=== PATIENT | female | born 1965 | race Caucasian/White ===

== ENCOUNTER 2019-04-24 07:47 | Emergency (ER) | payer BC, SELFPAY ==
[2019-04-24 07:50] VITALS: BP 111/62; PULSE 115; RESP 16; TEMP 36.8; O2SAT 99
[2019-04-24 07:55] VITALS: BP 111/62; PULSE 120; RESP 16; TEMP 36.8; O2SAT 99
--- NOTE | 2019-04-24 08:23 | ED.GENADULT ---
HPI - General Adult General Chief complaint: Wound/Laceration Stated complaint: ?? spider bite Time Seen by Provider: 04/24/19 08:09 Source: patient Mode of arrival: ambulatory Limitations: no limitations History of Present Illness HPI narrative: Patient presents with chief complaint of spider bite to her left thigh that she noticed at approximately 5 AM this morning. Patient states that she felt something bite her in her pajama pants that she jumped up and removed her pants and later saw the bruised area. Patient states the area is tender. Patient denies any drainage, fever, chills, nausea, vomiting, weakness, chest pain, shortness of breath, weakness. Patient reports taking methamphetamines yesterday. Patient states that she does not normally use methamphetamines. Patient is a cigarette smoker. Patient denies any chronic medical conditions. Patient reports taking Tylenol PM and NyQuil PM last night to help her sleep as she was wound up. Related Data Allergies Allergy/AdvReac Type Severity Reaction Status Date / Time Penicillins Allergy Unknown Hives Verified 04/24/19 07:53 Review of Systems Review of Systems: Narrative: CONSTITUTIONAL: Denies fever, chills, or sweats. EYES: Denies visual changes, redness, or discharge. ENT: Denies rhinorrhea, congestion, sore throat, or otalgia. CARDIOVASCULAR: Denies chest pain, palpitations, or edema. RESPIRATORY: Denies cough or dyspnea. GASTROINTESTINAL: Denies abdominal pain, nausea, vomiting, or diarrhea. GENITOURINARY: Denies dysuria or hematuria. SKIN: Reports insect bite denies rash or itching. MUSCULOSKELETAL: Denies back pain, joint pain, or myalgia. NEUROLOGIC: Denies headache, numbness, dizziness, or weakness. PSYCHIATRIC: Denies anxiety or depression. [facility] Social History Social History (Updated 04/24/19 @ 08:30 by Jeannie Spencer PA-C) Smoking status: Current every day smoker Tobacco type: cigarettes Alcohol intake: current Substance use: current Substance use type: methamphetamine Gender identity (if verbalized by the patient): Female Exam Narrative: Exam Narrative: GENERAL: Well-appearing, well-nourished, and in no acute distress. HEAD: Normocephalic, atraumatic. EYES: PERRLA and EOMI. ENT: Nares clear, no rhinorrhea or epistaxis. Mucous membranes moist. Oropharynx without tonsillar hypertrophy exudate or other lesions. Bilateral TMs pearly lovell nonbulging NECK: Supple. No adenopathy or masses. No carotid bruits or JVD CHEST: Clear to auscultation. No respiratory distress. No wheezes rales or rhonchi HEART: Regular rate and rhythm. No murmur heard. Normal peripheral pulses. ABDOMEN: Soft, nontender, nondistended, normal active bowel sounds. EXTREMITIES: Normal range of motion. No edema. SKIN: Bite appearing indentation to left thigh with surrounding erythema that is blanchable. Not necrotic. Tender to palpation. NEURO: No focal deficits. Alert and oriented x3. PSYCH: Normal mood and affect. Course Vital Signs Vital signs: Vital Signs Temperature 98.2 F 04/24/19 07:50 Pulse Rate 115 H 04/24/19 07:50 Respiratory Rate 16 04/24/19 07:50 Blood Pressure 111/62 04/24/19 07:50 Pulse Oximetry 99 04/24/19 07:50 Temperature 98.2 F 04/24/19 07:55 Pulse Rate 120 H 04/24/19 07:55 Respiratory Rate 16 04/24/19 07:55 Blood Pressure 111/62 04/24/19 07:55 Pulse Oximetry 99 04/24/19 07:55 Medical Decision Making MDM Narrative Medical decision making narrative: Discussed with the patient need to update tetanus status. At this time no sign of infection. Patient denies seeing any brown recluses in her home. Patient instructed on proper wound care and to present for reevaluation if any signs of infection, lethargy, nausea, vomiting, fever, chills, abdominal pain or any other emergent symptoms present. Patient states she only tried meth as a one time thing and discussed the risks of meth use and the need to stop usage. Patient is in
[2019-04-24] MEDS: IBUPROFEN 600 MG TABLET PO (08:55)
[2019-04-24] MEDS: TETANUS,DIPHTHERIA,AC PERTUSSIS ADULT 0.5 ML (ADACEL) IM (08:56)
== END 2019-04-24 09:05 | disposition home or self-care (01) ==
PROVIDERS: Emergency Provider Emergency Medicine; PCP Emergency Medicine
DX: T63.301A Toxic effect of unspecified spider venom, accidental (unintentional), initial encounter (principal); F17.210 Nicotine dependence, cigarettes, uncomplicated; Z23 Encounter for immunization
CPT/HCPCS: 90471; 90715; 99283; A9270

== ENCOUNTER 2021-05-08 08:24 | Emergency (ER) | payer BC, SELFPAY ==
[2021-05-08 08:32] VITALS: BP 132/80; PULSE 98; RESP 17; TEMP 36.6; O2SAT 100
--- NOTE | 2021-05-08 08:51 | ED.SKABFB ---
HPI - Skin/Abscess/Foreign Bdy General Chief complaint: Skin/Abscess/Foreign Body <Harvey Reyna APRN - Last Filed: 05/08/21 09:17> Stated complaint: rash, constipation <Harvey Reyna APRN - Last Filed: 05/08/21 09:17> Time Seen by Provider: 05/08/21 08:43 <Harvey Reyna APRN - Last Filed: 05/08/21 09:17> History of Present Illness HPI narrative: 56-year-old female presents to emergency room with complaints of right flank pain with an associated rash. States rash is painful and burning. Was seen at outside ER 3 days ago for low back pain, states that the work-up was normal. Patient reports having chickenpox as a child. <Harvey Reyna APRN - Last Filed: 05/08/21 09:17> Related Data Allergies/Adverse reactions: Allergies Allergy/AdvReac Type Severity Reaction Status Date / Time Penicillins Allergy Unknown Hives Verified 05/08/21 08:41 <Harvey Reyna APRN - Last Filed: 05/08/21 09:17> Review of Systems Review of Systems: CONSTITUTIONAL: Denies fever, chills, or sweats. EYES: Denies visual changes, redness, or discharge. ENT: Denies rhinorrhea, congestion, sore throat, or otalgia. CARDIOVASCULAR: Denies chest pain, palpitations, or edema. RESPIRATORY: Denies cough or dyspnea. GASTROINTESTINAL: Constipation. GENITOURINARY: Denies dysuria or hematuria. SKIN: Painful rash to right flank. MUSCULOSKELETAL: Denies back pain, joint pain, or myalgia. NEUROLOGIC: Denies headache, numbness, dizziness, or weakness. PSYCHIATRIC: Denies anxiety or depression. <Harvey Reyna APRN - Last Filed: 05/08/21 09:17> [facility] Social History Social History: Social History Smoking status: Current every day smoker Tobacco type: cigarettes Alcohol intake: current Substance use: current Substance use type: methamphetamine Gender identity (if verbalized by the patient): Female <Harvey Reyna APRN - Last Filed: 05/08/21 09:17> Exam Narrative: GENERAL: Well-appearing, well-nourished, and in no acute distress. HEAD: Normocephalic, atraumatic. EYES: PERRLA and EOMI. ENT: Nares clear, no rhinorrhea or epistaxis. Mucous membranes moist. Oropharynx without tonsillar hypertrophy exudate or other lesions. Bilateral TMs pearly lovell nonbulging NECK: Supple. No adenopathy or masses. No carotid bruits or JVD CHEST: Clear to auscultation. No respiratory distress. No wheezes rales or rhonchi HEART: Regular rate and rhythm. No murmur heard. Normal peripheral pulses. ABDOMEN: Soft, nontender, nondistended, normal active bowel sounds. EXTREMITIES: Normal range of motion. No edema. SKIN: Erythematous, vesicular rash following a dermatomal pattern to the right flank. NEURO: No focal deficits. Alert and oriented x3. PSYCH: Normal mood and affect. <Harvey Reyna APRN - Last Filed: 05/08/21 09:17> Course Vital Signs Vital signs: Vital Signs Temperature 36.6 C 05/08/21 08:32 Pulse Rate 98 05/08/21 08:32 Respiratory Rate 17 05/08/21 08:32 Blood Pressure 132/80 05/08/21 08:32 Pulse Oximetry 100 05/08/21 08:32 Temperature 36.6 C 05/08/21 08:32 Pulse Rate 98 05/08/21 08:32 Respiratory Rate 17 05/08/21 08:32 Blood Pressure 132/80 05/08/21 08:32 Pulse Oximetry 100 05/08/21 08:32 <Harvey Reyna APRN - Last Filed: 05/08/21 09:17> MDM - Skin/Abscess/Foreign Bdy Differential Diagnosis Differential diagnosis: Likely herpes zoster <Harvey Reyna APRN - Last Filed: 05/08/21 09:17> Discharge Plan Discharge Clinical Impression: Herpes zoster Qualifiers: Herpes zoster complications: without complications Qualified Code(s): B02.9 - Zoster without complications <GENEVIEVE Mims Last Filed: 05/08/21 09:17> Patient Disposition: Home, Self-Care <Harvey Reyna APRN - Last Filed: 05/08/21 09:17> Condition: Stable <Harvey Reyna, GENEVIEVE - Last Filed:
[2021-05-08 09:47] VITALS: BP 106/70; PULSE 76; RESP 18; O2SAT 98
== END 2021-05-08 09:48 | disposition home or self-care (01) ==
PROVIDERS: Emergency Provider Nurse Practitioner Family
DX: B02.9 Zoster without complications (principal); F17.210 Nicotine dependence, cigarettes, uncomplicated
CPT/HCPCS: 96372; 99283; J1100

== ENCOUNTER 2021-05-16 22:36 | Emergency (ER) | payer BC, SELFPAY ==
[2021-05-16 22:44] VITALS: BP 145/78; PULSE 88; RESP 16; TEMP 36.2; O2SAT 100
[2021-05-16] MEDS: HYDROcodone/acetaminophen (*CRX) 7.5-325 MG TABLET 1 TAB PO (23:37)
[2021-05-16 23:51] VITALS: TEMP 36.8
--- NOTE | 2021-05-16 23:54 | ED.SKABFB ---
HPI - Skin/Abscess/Foreign Bdy General Chief complaint: Skin/Abscess/Foreign Body Stated complaint: shingles pain Time Seen by Provider: 05/16/21 22:50 Source: patient Mode of arrival: ambulatory Limitations: no limitations History of Present Illness HPI narrative: 56 year old female presents today with pain to right side. Patient diagnosed with shingles about 3 weeks ago and has ran out of her tramadol. She has a doctor appointment scheduled on . Patient ran out of her tramadol she says 2-3 days ago and has tried tylenol and ibuprofen without relief. Areas are crusted over and seems to be healing fine. No redness, warmth, or purulent drainage. Related Data Allergies Allergy/AdvReac Type Severity Reaction Status Date / Time Penicillins Allergy Unknown Hives Verified 05/16/21 23:38 Review of Systems Review of Systems: CONSTITUTIONAL: Denies fever, chills, or sweats. EYES: Denies visual changes, redness, or discharge. ENT: Denies rhinorrhea, congestion, sore throat, or otalgia. CARDIOVASCULAR: Denies chest pain, palpitations, or edema. RESPIRATORY: Denies cough or dyspnea. GASTROINTESTINAL: Denies abdominal pain, nausea, vomiting, or diarrhea. GENITOURINARY: Denies dysuria or hematuria. SKIN: Healing shingles rash to right back. Denies itching. MUSCULOSKELETAL: Pain to right flank running where shingles are. Denies joint pain, or myalgia. NEUROLOGIC: Denies headache, numbness, dizziness, or weakness. PSYCHIATRIC: Denies anxiety or depression. [facility] Social History Social History Smoking status: Current every day smoker Tobacco type: cigarettes Alcohol intake: current Substance use: current Substance use type: methamphetamine Gender identity (if verbalized by the patient): Female Exam Narrative: GENERAL: Well-appearing, well-nourished, and in no acute distress. HEAD: Normocephalic, atraumatic. EYES: PERRLA and EOMI. ENT: Nares clear, no rhinorrhea or epistaxis. Mucous membranes moist. Oropharynx without tonsillar hypertrophy exudate or other lesions. Bilateral TMs pearly lovell nonbulging NECK: Supple. No adenopathy or masses. No carotid bruits or JVD CHEST: Clear to auscultation. No respiratory distress. No wheezes rales or rhonchi HEART: Regular rate and rhythm. No murmur heard. Normal peripheral pulses. ABDOMEN: Soft, nontender, nondistended, normal active bowel sounds. EXTREMITIES: Normal range of motion. No edema. SKIN: crusted over/scabbed lesions to right flank running to abdomen. No redness or purulent drainage noted. NEURO: No focal deficits. Alert and oriented x3. PSYCH: Normal mood and affect. Course Vital Signs Vital signs: Vital Signs Temperature 36.2 C L 05/16/21 22:44 Pulse Rate 88 05/16/21 22:44 Respiratory Rate 16 05/16/21 22:44 Blood Pressure 145/78 H 05/16/21 22:44 Pulse Oximetry 100 05/16/21 22:44 Temperature 36.8 C 05/16/21 23:51 Pulse Rate 88 05/16/21 22:44 Respiratory Rate 16 05/16/21 22:44 Blood Pressure 145/78 H 05/16/21 22:44 Pulse Oximetry 100 05/16/21 22:44 MDM - Skin/Abscess/Foreign Bdy MDM Narrative Medical decision making narrative: 56 year old female with recent history of shingles. Pain is running on the dermatome where the shingles is. Patient has no other symptoms and has ran out of her tramadol which was not working well for her. Will prescibe pain medications, she has follow up scheduled for with her primary. Differential Diagnosis Differential diagnosis: Likely herpes zoster, impetigo and contact dermatitis Medical Records Attestation: I reviewed the patient's medical records. Discharge Plan Discharge Clinical Impression: Acute pain associated with herpes zoster Patient Disposition: Home, Self-Care Condition: Stable Instructions: Antibiotic Form, Shingles (ED) Additional Instructions: Follow up with your provider for pain management.
== END 2021-05-16 23:54 | disposition home or self-care (01) ==
PROVIDERS: Emergency Provider Nurse Practitioner Family
DX: B02.9 Zoster without complications (principal); F17.210 Nicotine dependence, cigarettes, uncomplicated
CPT/HCPCS: 99283; A9270

== ENCOUNTER 2023-05-11 14:29 | Emergency (ER) | payer OTHER, SELFPAY ==
--- NOTE | ~2023-05-11 | XR_ITS ---
EXAMINATION: XR thoracic spine 3V DATE: 05/11/2023 17:02 INDICATION: Back pain. TECHNIQUE: 3 views of thoracic spine including standing views were obtained. COMPARISON: Chest 2 views 03/31/2016 FINDINGS: There is 17 degrees levoscoliosis of cervicothoracic spine. Vertebral body heights and inte rvertebral disc heights are normal. A calcified left lung nodule and calcified left hilar lymph nodes are consistent with old granulomatous disease. IMPRESSION: 1. Cervicothoracic levoscoliosis. Reviewed, dictated and finalized at location A. [employer]
--- NOTE | ~2023-05-11 | XR_ITS ---
EXAMINATION: [id number]_[id number]_CR DATE: 05/11/2023 17:01 INDICATION: Neck pain. TECHNIQUE: 3 views of cervical spine including standing views were obtained. COMPARISON: None. FINDINGS: There is 15 degrees levoscoliosis of cervicothoracic spine. There is kyphosis of cervical s pine. There is 2 mm retrolisthesis of C5 on C6. Vertebral body heights are normal. There is severely decreased disc height at C5-C6 and C6-C7. There is multilevel uncovertebral joint osteoarthritis, sev ere bilaterally at C5-C6 and C6-C7. There is multilevel facet joint osteoarthritic, severe at C7-T1. There is mild central canal stenosis at C5-C6 and C6-C7. No prevertebral soft tissue swelling. IMPRESSION: 1. Severe cervical spondylosis. 2. Cervicothoracic levoscoliosis. 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
[2023-05-11 14:43] VITALS: BP 103/59; PULSE 104; RESP 16; TEMP 36.2; O2SAT 99
[2023-05-11] MEDS: CYCLOBENZAPRINE HCL 10 MG TABLET PO (17:08)
[2023-05-11] MEDS: ACETAMINOPHEN 500 MG TABLET 1000 MG PO (17:08)
--- NOTE | 2023-05-11 17:18 | ED.BACK ---
HPI - Back Pain/Injury General Chief Complaint: Back Pain/Injury Stated Complaint: back pain/shoulder pain Time Seen by Provider: 05/11/23 16:05 History of Present Illness HPI Narrative: 58 year old female presenting to the emergency department for evaluation of muscular back pain. Patient states she was lifting a box prior to arrival and felt some tightness in her back. Patient denies any other pain or injury. Patient denies any numbness or weakness. Patient does report increased pain with palpation and with movement. Related Data Allergies Allergy/AdvReac Type Severity Reaction Status Date / Time Penicillins Allergy Unknown Hives Verified 05/16/21 23:38 Review of Systems Review of Systems: All systems reviewed & are unremarkable except as noted in HPI and below PMFSH Social History Social History Smoking status: Current every day smoker Tobacco type: cigarettes Alcohol intake: current Substance use: current Substance use type: methamphetamine Gender identity (if verbalized by the patient): Female Exam Narrative: APPEARANCE: Well appearing, no pain, no distress, well-nourished. HEAD: normocephalic, atraumatic. EYES: PERRLA/EOMI, conjunctivae clear. NOSE: Normal no drainage NECK: Supple. No adenopathy, no masses. RESPIRATORY: Airway patent, respirations nonlabored. Clear to auscultation bilaterally, no rales, rhonchi, wheezing. CARDIOVASCULAR: Regular rate and rhythm without murmurs rubs or gallops. ABDOMINAL: Soft, nontender, nondistended, normal bowel sounds MUSCULOSKELETAL: Reproducible paraspinal muscular tenderness NEURO: Alert. Cranial nerves II through XII intact. SKIN: Warm, dry. Normal Color Course Course Emergency Course: Patient was treated for muscular strain and encouraged close follow-up with her primary care physician. Vital Signs Vital signs: Vital Signs Temperature 97.1 F L 05/11/23 14:43 Pulse Rate 104 H 05/11/23 14:43 Respiratory Rate 16 05/11/23 14:43 Blood Pressure 103/59 L 05/11/23 14:43 Pulse Oximetry 99 05/11/23 14:43 Oxygen Delivery Room Air 05/11/23 14:43 Temperature 97.1 F L 05/11/23 14:43 Pulse Rate 104 H 05/11/23 14:43 Respiratory Rate 16 05/11/23 14:43 Blood Pressure 103/59 L 05/11/23 14:43 Pulse Oximetry 99 05/11/23 14:43 Oxygen Delivery Room Air 05/11/23 14:43 MDM - Back Pain/Injury MDM Narrative Medical decision making narrative: 58-year-old female presenting ED for evaluation of muscular strain. Patient was neurologically intact and patient did have reproducible muscular tenderness to thoracic spine. Patient had negative imaging and patient was comfortable with plan for discharge and close follow-up. Patient was provided medications for muscle spasm and was advised to take Tylenol ibuprofen for pain control. Differential Diagnosis Differential diagnosis: Likely thoracic back pain Imaging Data Radiologist's impression: Impressions Cervical Spine X-Ray 05/11/23 17:01 IMPRESSION: 1. Severe cervical spondylosis. 2. Cervicothoracic levoscoliosis. Thoracic Spine X-Ray 05/11/23 17:04 IMPRESSION: 1. Cervicothoracic levoscoliosis. Discharge Plan Discharge Clinical Impression: Muscle strain Patient Disposition: Home, Self-Care Condition: Stable Instructions: Antibiotic Form, Back Pain (ED) Additional Instructions: Tylenol ibuprofen for pain control. Flexeril for muscle spasm. Have close follow-up with her primary care physician. If you have any worsening symptoms then please call or return to the emergency department. Prescriptions: New cyclobenzaprine 10 mg tablet 10 mg PO BID PRN (Reason: muscle spasm) Qty: 14 0RF Discontinued naproxen 500 mg tablet 500 mg PO BID PRN (Reason: pain) Qty: 20 0RF valacyclovir 1 gram tablet 1,000 mg PO TID Qty: 21 0RF tramadol 50 mg tablet 50 mg PO Q4H PRN
== END 2023-05-11 17:54 | disposition home or self-care (01) ==
PROVIDERS: Emergency Provider Emergency Medicine
DX: S29.012A Strain of muscle and tendon of back wall of thorax, initial encounter (principal); F17.210 Nicotine dependence, cigarettes, uncomplicated; X58.XXXA Exposure to other specified factors, initial encounter
CPT/HCPCS: 72040; 72072; 99283; A9270

== ENCOUNTER 2023-12-13 19:05 | Emergency (ER) | payer OTHER, SELFPAY ==
[2023-12-13 19:20] VITALS: BP 124/73; PULSE 107; RESP 18; TEMP 37; O2SAT 100
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
== END 2023-12-13 19:49 | disposition home or self-care (01) ==
PROVIDERS: Emergency Provider Nurse Practitioner
DX: R06.02 Shortness of breath (principal); F17.210 Nicotine dependence, cigarettes, uncomplicated; F15.90 Other stimulant use, unspecified, uncomplicated
CPT/HCPCS: 99213; G0463